=== PATIENT | female | born 1940 | race Caucasian/White ===

== ENCOUNTER → 2019-03-09 10:43 | Outpatient (CLI) | payer MEDICARE, OTHER ==
[2013-10-05 08:50] VITALS: BMI 30.8
[~2019-03-09 10:43] MED LIST: ASPIRIN EC81 M1 PO; FISH OIL 1,0001 CA1; NEXIUM40 MG PO; PRAVACHOL40 MG PO; VITAMIN D2000 UNIT PO
--- NOTE | 2019-03-15 10:41 | ST ---
PATIENT:YANA BONILLA V MEDICAL RECORD: [id number] SEX: F LOCATION:[facility] ORDER #: ADMISSION DATE: 03/09/19 AGE OF PATIENT: 78 REFERRING PHYSICIAN: INTERPRETING PHYSICIAN: JONI PISANO MD DATE OF SERVICE: 03/09/2019 PROCEDURE: Nuclear stress test. INDICATION: Angina, abnormal ECG. She was exercised on standard Lexiscan protocol with 27 mCi of sestamibi injected at peak stress, 9 mCi used previously for rest images. FINDINGS: Gated SPECT reveals preserved ejection fraction at 76% with good wall motion and thickening and brightening throughout all segments. SPECT imaging Cardiolite was used as myocardial fusion agent. There is homogeneous uptake throughout all segments at rest and stress with no evidence of inducible ischemia or previous infarction. OVERALL IMPRESSION: 1. This is a normal nuclear stress test with no evidence of inducible ischemia or previous infarction. 2. Gated SPECT reveals a preserved ejection fraction at 76%. In this patient with ongoing symptomatology, the current scan does not suggest the presence of hemodynamically significant coronary artery disease. Evaluate noncardiac etiology of chest pain. TRANSINT:[id number] Voice Confirmation ID: [id number] DOCUMENT ID: [id number] JONI PISANO MD at 1041 CC: DEANA PARIS [id number] DICTATION DATE: 03/10/19818 [employer] INSTRUCTOR: 03/11/19 0135 DEP CLI 03/09/19 [facility] [address] [place] [address]
== END | disposition home or self-care (01) ==
LOC: D.HCCECHO 10:43
PROVIDERS: ATTEND Internal Medicine Interventional Cardiology
DX: I20.9 Angina pectoris, unspecified (principal); I25.10 Atherosclerotic heart disease of native coronary artery without angina pectoris